=== PATIENT | male | born 1930 | race Asian ===

== ENCOUNTER → 2018-12-03 | Outpatient (CLI) | payer MEDICARE, OTHER ==
[~2018-12-03] MED LIST: ALLO100T PO; AMLO1CAP4 PO; COLC0.6T67 PO; FINA5TAB41 PO; FISH1CAP27 PO; FLUT44HFA IH; FOLI1 PO; LEVO500 PO; METR500 PO; MIRT15 PO; MONT10TA21 PO; OMEP20 PO; PRED10 PO; SIMV-260 PO; TERA5CAP12 PO; VITAD400 PO
== END | disposition home or self-care (01) ==
LOC: MSR 08:51
PROVIDERS: ATTEND Legal Medicine
DX: I67.82 Cerebral ischemia (principal); I67.2 Cerebral atherosclerosis; I65.23 Occlusion and stenosis of bilateral carotid arteries; I51.7 Cardiomegaly; I35.8 Other nonrheumatic aortic valve disorders
CPT/HCPCS: 70450; 70551; 93306

== ENCOUNTER 2019-02-18 09:34 | Inpatient (IN) | payer MEDICARE, OTHER ==
[~2019-02-18] VITALS: Ht 162.6 cm; Wt 69.5 kg
[2019-02-18] MEDS: OMEGA-3/DHA/EPA/FISH OIL 1,000 MG CAPSULE PO SCH (09:00)
[~2019-02-18 09:34] MED LIST changes: -COLC0.6T67 PO; +COLC0.6T76 PO
[2019-02-18] MEDS ORDERED: IPRATROPIUM BROMIDE 0.5 MG/2.5 ML NEB SOLUTION NEB ONE (10:00)
[2019-02-18] MEDS ORDERED: ALBUTEROL SULFATE 2.5 MG/0.5 ML NEB SOLUTION NEB ONE (10:00)
[2019-02-18] MEDS ORDERED: SODIUM CHLORIDE 0.9% 1,000 ML IV ONE ×3 (10:00→13:15)
[2019-02-18 10:08] LABS: BASOPHILS % (AUTO) 0.6 % (0.0-2.0); EOSINOPHILS % (AUTO) 0.9 % (1.0-6.0); HEMATOCRIT 36.5 % (41-53); LYMPHOCYTES % (AUTO) 27.3 % (22.0-44.0); MEAN CORPUSCULAR HEMOGLOBIN 34.5 pg (26.0-34.0); MEAN CORPUSCULAR VOLUME 105 fL (80-100); MONOCYTES # (AUTO) 0.6 K/uL (0.1-1.0); MONOCYTES % (AUTO) 7.9 % (2.0-9.0); NEUTROPHILS # (AUTO) 4.7 K/uL (1.8-7.7); NEUTROPHILS % (AUTO) 63.3 % (40.0-70.0); RED BLOOD CELL COUNT(AUTO) 3.49 MIL/uL (4.50-5.90); RED CELL DISTRIBUTION WIDTH 14.1 % (11.5-14.5)
[2019-02-18 10:10] LABS: PLATELET COUNT (AUTO) 86 K/uL (150-450)
[2019-02-18 10:13] LABS: INR 1.1 (0.9-1.1); PROTHROMBIN TIME 11.1 SEC (9.4-11.6)
[2019-02-18 10:21] LABS: CALCIUM, TOTAL 9.5 mg/dL (8.8-10.5); CREATININE 2.33 mg/dL (0.60-1.30); POTASSIUM 4.2 mmol/L (3.5-5.1)
[2019-02-18 10:52] LABS: ALBUMIN 3.3 g/dL (3.4-5.0); BILIRUBIN,TOTAL 0.5 mg/dL (0.1-1.0); TOTAL PROTEIN, SERUM 6.4 g/dL (6.4-8.2)
[2019-02-18] MEDS ORDERED: CefTRIAXone 1 GM/DEXTROSE 50 ML IV ONE (11:15)
[2019-02-18 12:37] LABS: APPEARANCE,URINE TURBID (CLEAR); GLUCOSE, URINE (UA) NEGATIVE (NEGATIVE); KETONES,URINE TRACE mg/dL (NEGATIVE); LEUKOCYTE ESTERASE ,URINE SMALL (NEGATIVE); NITRATE,URINE NEGATIVE (NEGATIVE); OCCULT BLOOD,URINE LARGE (NEGATIVE); PROTEIN,URINE SEE CONFIRM (NEGATIVE)
[2019-02-18 12:38] LABS: BILIRUBIN,URINE PRELIM. POSITIVE (NEGATIVE)
[2019-02-18 12:49] LABS: SULFOSALICYLIC ACID,URINE 1+ (Negative)
[2019-02-18 12:51] LABS: BACTERIA,URINE Few /HPF (None Seen); RBC,URINE 26-50 /HPF (0-2); WBC,URINE 0-2 /HPF (0-5)
[2019-02-18 12:52] LABS: SQUAMOUS EPITHELIAL CELL,UR Moderate /LPF (None Seen)
[2019-02-18 12:55] LABS: LACTIC ACID 5.3 mmol/L (0.4-2.0)
[2019-02-18] MEDS ORDERED: ACETAMINOPHEN 325 MG TABLET PO PRN (13:15)
[2019-02-18] MEDS ORDERED: 0.9% SODIUM CHLORIDE 10 ML SYRINGE IVP PRN (13:15)
[2019-02-18] MEDS ORDERED: ONDANSETRON HCL 4 MG/2 ML VIAL IVP PRN ×2 (13:15→17:15)
[2019-02-18 17:00] VITALS: BP 110/64
[2019-02-18] MEDS ORDERED: MAGNESIUM HYDROXIDE SUSPENSION 30 ML UDCUP PO PRN (17:15)
[2019-02-18] MEDS ORDERED: ZOLPIDEM TARTRATE 5 MG TABLET PO PRN (17:15)
[2019-02-18] MEDS ORDERED: BISACODYL 10 MG RECTAL RECTAL SUPPOSITORY PR PRN (17:15)
[2019-02-18] MEDS ORDERED: ALBUTEROL SULFATE 2.5 MG/0.5 ML NEB SOLUTION NEB PRN (17:15)
[2019-02-18] MEDS ORDERED: IPRATROPIUM BROMIDE 0.5 MG/2.5 ML NEB SOLUTION NEB PRN (17:15)
[2019-02-18] MEDS: SODIUM CHLORIDE 0.45% 1,000 ML IV SCH (18:35)
[2019-02-18] MEDS: MIRTAZAPINE 15 MG TABLET PO SCH (21:21)
[2019-02-18] MEDS: SIMVASTATIN 20 MG TABLET PO SCH (21:21)
[2019-02-18] MEDS: HEPARIN SODIUM,PORCINE 5,000 UNITS/ML VIAL SQ SCH (21:21)
[2019-02-19 00:36] VITALS: BP 112/65
[2019-02-19] MEDS: SODIUM CHLORIDE 0.45% 1,000 ML IV SCH ×2 (05:35→21:14)
[2019-02-19 06:25] LABS: BASOPHILS % (AUTO) 0.5 % (0.0-2.0); EOSINOPHILS % (AUTO) 3.6 % (1.0-6.0); HEMATOCRIT 33.1 % (41-53); LYMPHOCYTES # (AUTO) 2.1 K/uL (1.0-4.8); LYMPHOCYTES % (AUTO) 36.4 % (22.0-44.0); MEAN CORPUSCULAR HEMOGLOBIN 34.8 pg (26.0-34.0); MEAN CORPUSCULAR HGB CONC 33.3 G/dL (31.0-37.0); MEAN CORPUSCULAR VOLUME 105 fL (80-100); MONOCYTES # (AUTO) 0.4 K/uL (0.1-1.0); MONOCYTES % (AUTO) 7.7 % (2.0-9.0); NEUTROPHILS % (AUTO) 51.8 % (40.0-70.0); RED BLOOD CELL COUNT(AUTO) 3.17 MIL/uL (4.50-5.90); RED CELL DISTRIBUTION WIDTH 14.2 % (11.5-14.5)
[2019-02-19 06:44] LABS: LACTIC ACID 0.8 mmol/L (0.4-2.0)
[2019-02-19 06:51] LABS: CALCIUM, TOTAL 8.9 mg/dL (8.8-10.5); CREATININE 1.38 mg/dL (0.60-1.30); FREE T4 (FREE THYROXINE) 1.09 ng/dL (0.76-1.46); MAGNESIUM 1.8 mg/dL (1.80-2.40); POTASSIUM 4.4 mmol/L (3.5-5.1); THYROID STIMULATING HORMONE 0.7 uIU/mL (0.36-3.74)
[2019-02-19 07:00] LABS: URIC ACID 6.9 mg/dL (2.6-7.2)
[2019-02-19 07:15] LABS: PLATELET COUNT (AUTO) 64 K/uL (150-450)
[2019-02-19 07:16] LABS: HEMOGLOBIN A1C 6.5 % (4.5-6.2)
[2019-02-19 08:03] VITALS: BP 109/65
[2019-02-19] MEDS: TERAZOSIN HCL 5 MG CAPSULE PO SCH (08:42)
[2019-02-19] MEDS: CHOLECALCIFEROL (VIT D3) 1,000 UNITS TABLET PO SCH (08:43)
[2019-02-19] MEDS: FINASTERIDE 5 MG TABLET PO SCH (08:43)
[2019-02-19] MEDS: MONTELUKAST SODIUM 10 MG TABLET PO SCH (08:44)
[2019-02-19] MEDS: HEPARIN SODIUM,PORCINE 5,000 UNITS/ML VIAL SQ SCH ×2 (08:44→21:15)
[2019-02-19] MEDS: OMEGA-3/DHA/EPA/FISH OIL 1,000 MG CAPSULE PO SCH (08:44)
[2019-02-19] MEDS: FOLIC ACID 1 MG TABLET PO SCH (08:44)
[2019-02-19] MEDS: OMEPRAZOLE 20 MG CAPSULE PO SCH (08:44)
[2019-02-19 11:40] VITALS: BP 104/61
[2019-02-19] MEDS: CefTRIAXone 1 GM/DEXTROSE 50 ML IV SCH (12:07)
[2019-02-19] MEDS ORDERED: INSULIN LISPRO 100 UNITS/ML SQ PRN (12:30)
[2019-02-19] MEDS ORDERED: DEXTROSE 50%-WATER 25 GM/50 ML SYRINGE IVP PRN (12:30)
[2019-02-19 15:51] VITALS: BP 107/60
[2019-02-19 16:47] LABS: CREATININE,URINE RANDOM 16.9 mg/dL (30.0-125.0)
[2019-02-19 20:22] VITALS: BP 123/73
[2019-02-19] MEDS ORDERED: BUDESONIDE 0.5 MG/2 ML NEB SOLUTION NEB SCH (21:00)
[2019-02-19] MEDS: MIRTAZAPINE 15 MG TABLET PO SCH (21:14)
[2019-02-19] MEDS: SIMVASTATIN 20 MG TABLET PO SCH (21:15)
[2019-02-19 23:07] VITALS: BP 117/65
[2019-02-20 03:43] VITALS: BP 117/71
[2019-02-20 05:46] LABS: EOSINOPHILS % (AUTO) 6.3 % (1.0-6.0); HEMATOCRIT 36.5 % (41-53); HEMOGLOBIN 12.2 g/dL (13.5-17.5); LYMPHOCYTES # (AUTO) 1.9 K/uL (1.0-4.8); LYMPHOCYTES % (AUTO) 36.6 % (22.0-44.0); MEAN CORPUSCULAR HEMOGLOBIN 35.1 pg (26.0-34.0); MEAN CORPUSCULAR HGB CONC 33.6 G/dL (31.0-37.0); MEAN CORPUSCULAR VOLUME 105 fL (80-100); MONOCYTES # (AUTO) 0.4 K/uL (0.1-1.0); MONOCYTES % (AUTO) 7.3 % (2.0-9.0); NEUTROPHILS # (AUTO) 2.5 K/uL (1.8-7.7); NEUTROPHILS % (AUTO) 48.8 % (40.0-70.0); PLATELET COUNT (AUTO) 66 K/uL (150-450); RED BLOOD CELL COUNT(AUTO) 3.48 MIL/uL (4.50-5.90); RED CELL DISTRIBUTION WIDTH 14.2 % (11.5-14.5)
[2019-02-20 06:53] LABS: CALCIUM, TOTAL 9.1 mg/dL (8.8-10.5); CREATININE 1.19 mg/dL (0.60-1.30)
[2019-02-20 08:17] VITALS: BP 151/77
[2019-02-20] MEDS: HEPARIN SODIUM,PORCINE 5,000 UNITS/ML VIAL SQ SCH (09:00)
[2019-02-20] MEDS: SODIUM CHLORIDE 0.45% 1,000 ML IV SCH (09:30)
[2019-02-20] MEDS: FINASTERIDE 5 MG TABLET PO SCH (10:47)
[2019-02-20] MEDS: FOLIC ACID 1 MG TABLET PO SCH (10:47)
[2019-02-20] MEDS: MONTELUKAST SODIUM 10 MG TABLET PO SCH (10:47)
[2019-02-20] MEDS: TERAZOSIN HCL 5 MG CAPSULE PO SCH (10:47)
[2019-02-20] MEDS: OMEGA-3/DHA/EPA/FISH OIL 1,000 MG CAPSULE PO SCH (10:47)
[2019-02-20] MEDS: CHOLECALCIFEROL (VIT D3) 1,000 UNITS TABLET PO SCH (10:48)
[2019-02-20] MEDS: OMEPRAZOLE 20 MG CAPSULE PO SCH (10:49)
[2019-02-20 11:15] LABS: GLUCOMETER DEV NAME(LOC) 5S.1; GLUCOSE,POINT OF CARE 96 MG/DL (70-110)
[2019-02-20 11:27] VITALS: BP 125/65
[2019-02-20] MEDS: CefTRIAXone 1 GM/DEXTROSE 50 ML IV SCH (11:42)
[2019-02-20 13:04] LABS: GLUCOMETER DEV NAME(LOC) 5N.2; GLUCOSE,POINT OF CARE 97 MG/DL (70-110)
[2019-02-20 13:04] LABS: GLUCOMETER DEV NAME(LOC) 5N.2; GLUCOSE,POINT OF CARE 105 MG/DL (70-110)
[2019-02-20] MEDS ORDERED: MACR100 PO (13:39)
== END 2019-02-20 15:00 | disposition home health service (06) | DRG 871 ==
LOC: EMS 09:35 → 5S 13:45
PROVIDERS: ADMIT Internal Medicine Geriatric Medicine; ATTEND Internal Medicine Geriatric Medicine
DX: A41.9 Sepsis, unspecified organism (principal); I50.31 Acute diastolic (congestive) heart failure; N17.9 Acute kidney failure, unspecified; N39.0 Urinary tract infection, site not specified; E87.2 Acidosis; J45.21 Mild intermittent asthma with (acute) exacerbation; I13.0 Hypertensive heart and chronic kidney disease with heart failure and stage 1 through stage 4 chronic kidney disease, or unspecified chronic kidney disease; K86.2 Cyst of pancreas; R34 Anuria and oliguria; I95.9 Hypotension, unspecified; D53.9 Nutritional anemia, unspecified; D69.6 Thrombocytopenia, unspecified; M10.9 Gout, unspecified; E78.5 Hyperlipidemia, unspecified; M54.9 Dorsalgia, unspecified; K21.9 Gastro-esophageal reflux disease without esophagitis; N40.0 Benign prostatic hyperplasia without lower urinary tract symptoms; N18.9 Chronic kidney disease, unspecified; E11.22 Type 2 diabetes mellitus with diabetic chronic kidney disease; E11.65 Type 2 diabetes mellitus with hyperglycemia; E78.00 Pure hypercholesterolemia, unspecified; E86.0 Dehydration; I25.10 Atherosclerotic heart disease of native coronary artery without angina pectoris; J44.9 Chronic obstructive pulmonary disease, unspecified; Z95.1 Presence of aortocoronary bypass graft; Z79.899 Other long term (current) drug therapy; Z90.49 Acquired absence of other specified parts of digestive tract
CPT/HCPCS: 51702; 71250; 76700; 80074; 82570; 83036; 83605; 83735; 84439; 84443; 84540; 84550; 87040; 93005; 93306; 94640; G0378; J0696; J1644; J7030